=== PATIENT | female | born 1950 | race Caucasian/White ===

== ENCOUNTER 2020-02-15 12:09 | Outpatient (CLI) | payer MEDICARE, SELFPAY ==
--- NOTE | 2020-02-15 11:56 | DI.RAD_ITS ---
EXAM: XR KNEE LT 2V AP,LAT CLINICAL HISTORY: pain. TECHNIQUE: 2D digital imaging was performed. COMPARISON: No exams were available for comparison FINDINGS: BONES: No acute fracture is present. No bony destructive lesion is seen. There is a small enthesophy te at the superior patella. JOINTS: The knee is normally aligned. A moderate joint effusion is present. SOFT TISSUE: Normal. IMPRESSION: Moderate joint effusion. DATA REPOSITORY: RADIATION DOSE DELIVERED:
== END 2020-02-15 12:29 ==
PROVIDERS: Visit Provider Orthopaedic Surgery
DX: M25.562 Pain in left knee (principal); M25.462 Effusion, left knee; M23.92 Unspecified internal derangement of left knee
CPT/HCPCS: 20610; 99201; 73560; J1040

== ENCOUNTER → 2020-03-14 09:58 | Outpatient (BNVA) | payer MEDICARE, SELFPAY | PROVIDERS: Visit Provider Orthopaedic Surgery | DX: M23.92 Unspecified internal derangement of left knee; Z98.890 Other specified postprocedural states | CPT/HCPCS: 99213 ==

== ENCOUNTER → 2020-04-11 09:31 | Outpatient (BNVA) | payer MEDICARE, SELFPAY | PROVIDERS: Visit Provider Orthopaedic Surgery | DX: M23.92 Unspecified internal derangement of left knee | CPT/HCPCS: 99213 ==

== ENCOUNTER 2022-01-07 01:01 | Outpatient (CLI) | payer MEDICARE, SELFPAY ==
--- NOTE | 2022-01-07 07:30 | DI.MRI_ITS ---
Exam(s) MR IAC BRAIN WO/W EXAM: MR IAC BRAIN WO/W CLINICAL HISTORY: dizziness,imbalance, r26.89,r42 TECHNIQUE: Multiplanar multisequence MRI of the brain was performed. Both noninfused and contrast i nfused sequences were performed. IV Contrast injected was 19 cc Dotarem. COMPARISON: No exams were available for comparison FINDINGS: INTERNAL AUDITORY CANALS: There are no masses in the cerebellopontine angles. No evidence of intraca nalicular acoustic neuroma. The high-resolution sub millimeter slice FIESTA sequence reveals normal appearing 7th and 8th cranial nerves within the internal auditory canals, bilaterally. The adjacent 5th cranial nerves (trigeminal nerves) appear unremarkable in this region. CEREBRAL PARENCHYMA: No evidence of intracranial hemorrhage, mass effect nor shift of midline structu re. No extraaxial fluid collections. Ventricles are not enlarged nor shifted. There is no significant focal signal abnormality in the cerebellar hemispheres nor within the coral, m idbrain, and thalami. There are few tiny nonspecific foci of white matter signal abnormality Vivi in supra ventricular whit e matter thenar on the FLAIR images. There is no associated brain edema or hemorrhage and no abnorma l signal evident to suggest restricted diffusion-acute ischemic events at these levels nor elsewhere in the brain.. There are no ring enhancing lesions in the brain. There is no abnormal meningeal enhancement. PITUITARY GLAND: No mass nor parasellar abnormality. No obvious abnormality in the cavernous sinuses. FLOW VOIDS: The expected flow void are noted. No evidence of obvious aneurysm nor obvious vascular ma lformation. PARANASAL SINUSES: The visualized paranasal sinuses appear unremarkable. ORBITS: No obvious abnormal findings. IMPRESSION: 1. Subtle nonspecific white matter periventricular findings as described above. No evidence of hemor rhage, acute infarct (lacunar nor territorial), nor ring-enhancing lesions. 2. No abnormal enhancing intracranial finding. 3. No evidence of acoustic schwannoma-neuromma. DATA REPOSITORY:
[2022-01-07 12:08] LABS: CREATININE 0.9 mg/dL (0.55-1.02)
[2022-01-07] MEDS: Normal Saline Flush 10 ML SYR IVP (12:16)
[2022-01-07] MEDS: Gadoterate meglumine 20 ML VIAL 19 ML IVP (12:16)
== END 2022-01-07 01:21 ==
PROVIDERS: PCP Family Medicine; Visit Provider Otolaryngology
DX: R26.89 Other abnormalities of gait and mobility (principal); R42 Dizziness and giddiness; Z01.812 Encounter for preprocedural laboratory examination; R90.82 White matter disease, unspecified
CPT/HCPCS: 70553; 82565

== ENCOUNTER → 2022-02-26 13:20 | Outpatient (BNVA) | payer MEDICARE, SELFPAY | PROVIDERS: PCP Family Medicine; Referring Provider Otolaryngology; Visit Provider Psychiatry & Neurology Neurology | DX: G62.9 Polyneuropathy, unspecified (principal) | CPT/HCPCS: 99214 ==

== ENCOUNTER 2022-08-12 03:39 | Outpatient (CLI) | payer MEDICARE, SELFPAY ==
[2022-08-12 11:48] LABS: Vitamin B12 651 pg/mL (193-986)
[2022-08-13 13:28] LABS: Albumin 62.7 % (55.8-66.1); Albumin g/dL 4.1 g/dL (3.6-5.2); Total Protein 6.6 g/dL (6.3-8.2)
== END 2022-08-12 03:40 | disposition home or self-care (01) ==
LOC: LBO 03:39
PROVIDERS: PCP Family Medicine; Visit Provider Psychiatry & Neurology Neurology
DX: G62.9 Polyneuropathy, unspecified (principal)
CPT/HCPCS: 36415; 82607; 84165

== ENCOUNTER 2022-10-28 08:59 | Outpatient (CLI) | payer MEDICARE, SELFPAY ==
--- NOTE | 2022-10-28 08:15 | DI.MAMMO_ITS ---
Exam(s) MAMMO SCREENING EXAM: MAMMO SCREENING CLINICAL HISTORY: screening,Z12.39 TECHNIQUE: Bilateral full field digital CC and MLO mammographic images were obtained with 3D tomosyn thesis and utilizing computer aided detection (CAD). COMPARISON: Available for comparison. FINDINGS: Masses/Architectural Distortion: There is stable right breast nodules. No suspicious nodules or area s of architectural distortion are present. Microcalcifications: No suspicious pleomorphic-type are seen. Skin Thickening/Nipple Retraction: None. IMPRESSION: 1. No significant interval change with no specific features of malignancy noted. 2. Unless there is more urgent need, screening mammography is recommended, as per [employer] guidelines. BI-RADS Category 2 - Benign Findings Breast Density - Category B - Scattered areas of fibroglandular density Breast density category C or D implies that the patient has dense breast tissue. Dense breast tissue is very common and is not abnormal but dense breast tissue can make it harder to find cancer on a ma mmogram. Also, dense breast tissue may increase their breast cancer risk. This information about the result of the mammogram report was provided to the patient to raise their awareness. Use this report when you speak with the patient about their risks for breast cancer, which includes their family hist ory. At that time, you may recommend for more screening tests (Ultrasound or MRI) as they might be us eful based on their risk. A negative radiographic report should not delay biopsy if a dominant or clinically suspicious mass is present. Up to ten percent of cancers are not identified on mammography. A negative report may reinforce clinical impression. Adenosis and dense breasts may obscure an underlying neoplasm. False positive reports average 6 to 10%. Patient will receive a letter notifying them of these results.
== END 2022-10-28 09:19 ==
PROVIDERS: PCP Family Medicine; Visit Provider Family Medicine
DX: Z12.31 Encounter for screening mammogram for malignant neoplasm of breast (principal)
CPT/HCPCS: 77063; 77067

== ENCOUNTER 2023-01-13 01:40 | Outpatient (CLI) | payer MEDICARE, SELFPAY ==
--- NOTE | 2023-01-13 09:40 | DI.RAD_ITS ---
Exam(s) XR CERVICAL SPINE COMP 4-5V EXAM: XR CERVICAL SPINE COMP 4-5V CLINICAL HISTORY: neck pain,m54.2. TECHNIQUE: 2D digital imaging was performed. COMPARISON: No exams were available for comparison FINDINGS: Five views There is no evidence fracture, listhesis, nor offset of the spinal laminar line. There is chronic disc space narrowing at C5-6 and C6-7 levels. There are bilateral Luschka joint ost eophytes evident at these 2 levels, best seen on the oblique views. No cervical ribs. No osseous le sions. IMPRESSION: Chronic degenerative disc disease in the lower cervical spine. No fractures. No listhesis. DATA REPOSITORY: RADIATION DOSE DELIVERED:
== END 2023-01-13 02:00 ==
LOC: DI 01:42
PROVIDERS: PCP Family Medicine; Visit Provider Family Medicine
DX: M50.322 Other cervical disc degeneration at C5-C6 level
CPT/HCPCS: 72050

== ENCOUNTER → 2023-01-19 10:21 | Outpatient (BNVA) | payer MEDICARE, SELFPAY | PROVIDERS: PCP Family Medicine; Referring Provider Family Medicine; Visit Provider Surgery | DX: K64.1 Second degree hemorrhoids (principal) | CPT/HCPCS: 99202; 99213 ==

== ENCOUNTER 2023-01-23 11:01 | Outpatient (CLI) | payer MEDICARE, SELFPAY ==
--- NOTE | 2023-01-23 11:00 | RT.EKG_ITS ---
APPROVED REPORT Exam: Resting ECG Reason for Exam: cardiac evaluation Patient Location: O HR:83 bpm ECG Measurements Heart Rate 83 AXIS DC 145 P 53 QRSd 157 QRS -18 QT 432 T 98 QTc 508 Conclusion Sinus rhythm...normal P axis, V-rate 50- 99 Left bundle branch block...QRSd>120, broad/notched R
== END 2023-01-23 11:02 | disposition home or self-care (01) ==
LOC: DI.CARD 11:01
PROVIDERS: PCP Family Medicine; Visit Provider Internal Medicine Cardiovascular Disease
DX: Z13.6 Encounter for screening for cardiovascular disorders (principal)
CPT/HCPCS: 93010

== ENCOUNTER → 2023-01-23 11:05 | Outpatient (BNVA) | payer MEDICARE, SELFPAY | PROVIDERS: PCP Family Medicine; Referring Provider Family Medicine; Visit Provider Internal Medicine Cardiovascular Disease | DX: I10 Essential (primary) hypertension (principal); R06.09 Other forms of dyspnea; I44.7 Left bundle-branch block, unspecified | CPT/HCPCS: 93005; 99203; 99214 ==

== ENCOUNTER 2023-03-02 01:19 | Outpatient (CLI) | payer MEDICARE, SELFPAY ==
--- NOTE | 2023-03-02 07:30 | DI.NM_ITS ---
APPROVED REPORT Exam: Pharmacologic Patient Location: Out-Patient Room/Bed: Stress Nurse: Elmira Betancur RN Ordering Provider:GALE ROGERSD, Contact Number: BMI: 32.18 Baseline Rhythm: Sinus Rhythm, LBBB Indications: Assess CAD, Dyspnea, Angina, LBBB Medical History Medical History: PreDM, Stable Angina, Dizziness, CALLAWAY, HLD, H/O Abnormal stress test, HTN, LBBB Cardiac Medications: Nitroglycerin, Metoprolol succinate, magnesium, losartan, colestipol, CoenzymeQ1 0, Vit D3, ASA, Amlodipine, Vit B Allergies: Statins, Cardiac Risk Factors: HTN, HLD, Obesity Pretest Chest Pain Characteristics: None Exercise History: Sedentary Physical Disabilities: None Lung Sounds: Clear to auscultation Heart Sounds: Regular Stress Test Details Test: Pharmacologic stress was paired with low level exercise. Nuclear Acquisition: Stress Tc-99m/Stress Tc-99m 1 day Rest Isotope: Tc-99m Sestamibi. Dose: 10.2 Date: 03/02/2023 Injection Time: 0925 Stress Isotope: Tc-99m Sestamibi. Dose: 32 Date: 03/02/2023 Injection Time: 1055 HR Resting HR Supine: 65. bpm Max Heart Rate (APMHR): 149.288822 bpm Resting HR Standin bpm Target HR (85% APMHR): 126.982756 bpm Max HR Achieved: 128 bpm % of APMHR: 85.91 Recovery HR: 89 bpm BP Resting BP Supine: 150/78 mmHg Resting BP Standin/86 mmHg Max BP: 168/80 mmHg Recovery BP: 148/82 mmHg ECG Resting ECG: Sinus Rhythm, LBBB Ectopy: None Stress ECG: Sinus Rhythm, LBBB ST Change: No significant ST segment changes noted Arrhythmia: None Recovery ECG: Sinus Rhythm, LBBB Recovery ST Change: No significant ST segment changes noted Recovery Arrhythmia: None Clinical Rate Pressure Product: 52421 Stress ECG Conclusion 1. Resting electrocardiogram showed a left bundle branch block 2. Patient underwent testing using combination of low-level exercise and pharmacologic stress with re gadenoson 3. Peak heart rate achieved was 86% of predicted for age 4. The electrocardiographic portion of the test was nondiagnostic due to resting EKG abnormalities (L BBB) 5. See MPI report Stress Test Summary STAGE HR BP SpO2 Symptoms NOTES Supine 65 150/78 98 Standing 69 148/86 98 1 min post Lexiscan injection 124 168/80 98 3 min post Lexiscan injection 99 154/84 97 Chest and Jaw tightness 6 min post Lexiscan injection 89 148/82 96 chest and jaw tightness resolved Pharmacologic testing was paired with low level exercise of treadmill at 1.2MPH and 0% Grade. Short d uration of chest and jaw tightness noted during recovery, resolved within 2 minutes. MPI Conclusion Myocardial perfusion is normal, no ischemia or evidence of prior infarction EF 55%, normal wall motion Radiologist Interpretation Radiologist Interpretation by: Barry Delvalle MD Interpretation Date/Time: 03/02/2023 17:36:38
[2023-03-02] MEDS: Regadenoson 0.4 MG/5 ML SYR IVP (10:37)
== END 2023-03-02 01:39 ==
LOC: DI 01:19
PROVIDERS: PCP Family Medicine; Visit Provider Internal Medicine Cardiovascular Disease
DX: I20.8 Other forms of angina pectoris (principal); I44.7 Left bundle-branch block, unspecified; R06.09 Other forms of dyspnea
CPT/HCPCS: 78452; 93016; 93018; 93017; J2785

== ENCOUNTER 2023-08-20 01:49 | Outpatient (CLI) | payer MEDICARE, SELFPAY ==
[2023-08-20 13:42] LABS: ALT 28 U/L (14-59); AST 28 U/L (15-37); Albumin 3.6 g/dL (3.4-5.0); Alkaline Phosphatase 94 U/L (46-116); Anion Gap 10.6 mmol/L (3-11); BUN 13 mg/dL (7-18); Bilirubin, Total 0.5 mg/dL (0.2-1.0); CO2 26.4 mmol/L (21.0-32.0); CREATININE 0.9 mg/dL (0.55-1.02); Calcium 8.9 mg/dL (8.5-10.1); Calculated LDL 182 mg/dL (<100); Chloride 105 mmol/L (98-107); Cholesterol 276 mg/dL (<200); Estimated GFR 67.92 (mL/min/1.73m2); Glucose 123 mg/dL (74-106); HDL Cholesterol 67 mg/dL (40-60); Sodium 142 mmol/L (136-145); TSH (W/Ref FT4) 2.91 uIU/mL (0.36-3.74); Total Protein 7.3 g/dL (6.4-8.2); Triglyceride 135 mg/dL (<150)
[2023-08-20 15:56] LABS: COMMENT (LAB VIEW ONLY) 166.25 mg/dL
[2023-08-20 16:27] LABS: Microalb ug/mg Crea 3.1 ug/mg Cr
== END 2023-08-20 01:50 | disposition home or self-care (01) ==
LOC: LBO 01:49
PROVIDERS: PCP Family Medicine; Visit Provider Family Medicine
DX: E11.9 Type 2 diabetes mellitus without complications (principal); I10 Essential (primary) hypertension
CPT/HCPCS: 36415; 80053; 80061; 82043; 82570; 83036; 84443

== ENCOUNTER → 2024-01-22 10:35 | Outpatient (BNVA) | payer MEDICARE, SELFPAY | PROVIDERS: PCP Family Medicine; Referring Provider Family Medicine; Visit Provider Internal Medicine Cardiovascular Disease | DX: I44.7 Left bundle-branch block, unspecified (principal) | CPT/HCPCS: 99213 ==

== ENCOUNTER 2024-12-06 02:11 | Outpatient (CLI) | payer MEDICARE, SELFPAY ==
[2024-12-06 11:14] LABS: ALT 19 U/L (14-59); AST 18 U/L (15-37); Albumin 4.1 g/dL (3.4-5.0); Alkaline Phosphatase 71 U/L (46-116); Anion Gap 10.5 mmol/L (3-11); BUN 15 mg/dL (7-18); Bilirubin, Total 0.7 mg/dL (0.2-1.0); CO2 25.5 mmol/L (21.0-32.0); Calcium 9.8 mg/dL (8.5-10.1); Calculated LDL 159 mg/dL (<100); Chloride 108 mmol/L (98-107); Cholesterol 248 mg/dL (<200); Estimated GFR 59.49 (mL/min/1.73m2); Glucose 102 mg/dL (74-106); HDL Cholesterol 65 mg/dL (>or=50); Potassium 3.9 mmol/L (3.5-5.1); Sodium 144 mmol/L (136-145); Total Protein 7.2 g/dL (6.4-8.2); Triglyceride 123 mg/dL (<150)
[2024-12-06 11:46] LABS: Hemoglobin A1C 5.2 % (<5.7)
== END 2024-12-06 02:12 | disposition home or self-care (01) ==
PROVIDERS: PCP Family Medicine; Visit Provider Family Medicine
DX: I10 Essential (primary) hypertension (principal); E11.9 Type 2 diabetes mellitus without complications
CPT/HCPCS: 36415; 80053; 80061; 83036

== ENCOUNTER 2025-01-20 10:00 | Outpatient (CLI) | payer MEDICARE, SELFPAY ==
--- NOTE | 2025-01-20 10:00 | RT.EKG_ITS ---
APPROVED REPORT Exam: Resting ECG Reason for Exam: follow up Patient Location: O HR:96 bpm ECG Measurements Heart Rate 96 AXIS SD 134 P 6 QRSd 149 QRS -9 QT 415 T 109 QTc 525 Conclusion Sinus rhythm...normal P axis, V-rate 50- 99 Left bundle branch block...QRSd>120, broad/notched R
== END 2025-01-20 10:01 | disposition home or self-care (01) ==
LOC: DI.CARD 10:06
PROVIDERS: PCP Family Medicine; Visit Provider Internal Medicine Cardiovascular Disease
DX: I44.7 Left bundle-branch block, unspecified (principal); I10 Essential (primary) hypertension
CPT/HCPCS: 93010

== ENCOUNTER → 2025-01-20 10:00 | Outpatient (BNVA) | payer MEDICARE, SELFPAY | PROVIDERS: PCP Family Medicine; Referring Provider Family Medicine; Visit Provider Internal Medicine Cardiovascular Disease | DX: I44.7 Left bundle-branch block, unspecified (principal); I10 Essential (primary) hypertension | CPT/HCPCS: 99213; 93005 ==

== ENCOUNTER 2025-02-13 01:53 | Outpatient (CLI) | payer MEDICARE, SELFPAY ==
--- NOTE | 2025-02-13 07:45 | DI.MAMMO_ITS ---
Exam(s) MAMMO SCREENING EXAM: MAMMO SCREENING CLINICAL HISTORY: screening,z12.39. TECHNIQUE: Bilateral full field digital CC and MLO mammographic images were obtained with 3D tomosyn thesis and utilizing computer aided detection (CAD). COMPARISON: Prior mammograms were reviewed. FINDINGS: There are no CAD designations. Benign-appearing right breast nodules unchanged from prior mammograms. Towards the posterior aspect of the left breast there is a new nodular density measuring 6 x 4 mm loc ated 13 cm in from the nipple on the CC view, slightly lateral of center. This has the appearance of a probable benign lymph node but was not evident on any of the prior mammograms dating back to 2017. In addition, there is another asymmetric density-possible nodule in the left breast seen on the CC vi ew approximately 6 cm in from the nipple measuring 1.2 x 0 0.6 cm. There are no malignant-appearing microcalcification groups in either breast. There is no significant architectural distortion nor skin thickening-retraction. IMPRESSION: 1. No radiographic evidence of malignancy in the right breast. 2. 2 asymmetric densities-possible nodules in the left breast as described above. Spot compression v iews and ultrasound recommended. BI-RADS Category 0 - Incomplete: Need additional imaging evaluation Breast Density - Category B - There are scattered areas of fibroglandular density. Breast density Category C or D implies that the patient has dense breast tissue. Dense breast tissue can make it harder to find cancer on a mammogram. Dense breast tissue is also associated with an incr eased risk of breast cancer. This information about the result of the mammogram report was provided to the patient to raise their awareness. Use this report when you speak with the patient about their risks for breast cancer, which includes their family history. At that time, you may recommend additional screening tests (Ultrasoun d or MRI) as these tests may add significant information. A negative radiographic report should not delay biopsy if a dominant or clinically suspicious mass is present. Up to ten percent of cancers are not identified on mammography. A negative report may reinforce clinical impression. Adenosis and dense breasts may obscure an underlying neoplasm. False positive reports average 6 to 10%. Patient will receive a letter notifying them of these results.
== END 2025-02-13 02:13 ==
LOC: DI 01:53
PROVIDERS: PCP Family Medicine; Visit Provider Family Medicine
DX: Z12.31 Encounter for screening mammogram for malignant neoplasm of breast (principal); R92.8 Other abnormal and inconclusive findings on diagnostic imaging of breast
CPT/HCPCS: 77063; 77067

== ENCOUNTER 2025-02-20 00:12 | Outpatient (CLI) | payer MEDICARE, SELFPAY ==
--- NOTE | 2025-02-20 | DI.US_ITS ---
Exam(s) MG MAMMO SCREEN CALL BACK UNI US BREAST LT COMPLETE EXAM: MG MAMMO SCREEN CALL BACK UNI and U/S breast LT complete CLINICAL HISTORY: 6 x 4 mm nodule 13 cm from nipple, and 1.2 x 0.6 cm nodule 6 cm from. TECHNIQUE: Craniocaudal and mediolateral oblique Full Field Digital Mammography views of the left breast with Computer Aided Diagnosis followed by Tomosynthesis and complete left breast ultrasound. All 4 quadrants of the left breast, left axilla and left retroareolar region were evaluated sonographically. COMPARISON: Comparison is made with prior examinations. FINDINGS: Mammography/Tomosynthesis: Masses/Architectural Distortion: The area seen on the craniocaudad view in the central left breast is less concerning on the current examination and appears similar to prior examinations. The well-circumscribed nodule in the outer left breast on the craniocaudad view is again seen. It has a mild lobulation/notch and is most consistent with a lymph node. On the MLO view, the well- circumscribed nodule in the inferior posterior breast persists. Microcalcifictions: No suspicious pleomorphic-type are seen. Skin Thickening/Nipple Retraction: None. Complete left breast US: Echotexture: Normal appearance of the glandular tissue. Shadowing: No suspicious foci. Cyst: At the 11 o'clock position 3 cm from the nipple there is a 0.3 by 0.4 x 0.2 cm well-circumscribed radially oriented avascular hypoechoic nodule. This may represent a complex cyst or benign lesion such as an intraparenchymal lymph node or fibroadenoma. Solid lesions: A benign-appearing lymph node is seen in the left axilla measuring 2.5 cm. Ductal dilation: None. IMPRESSION: 1. No definite evidence of malignancy is noted. 2. A six-month follow-up left mammogram is requested for re-evaluation. 3. The findings were discussed with the patient on the date of the examination. BI-RADS Category 3 - 6 month - Probably Benign Finding: Recommend follow-up imaging in 6 months Breast Density - Category B - There are scattered areas of fibroglandular density. Breast density Category C or D implies that the patient has dense breast tissue. Dense breast tissue can make it harder to find cancer on a mammogram. Dense breast tissue is also associated with an increased risk of breast cancer. This information about the result of the mammogram report was provided to the patient to raise their awareness. Use this report when you speak with the patient about their risks for breast cancer, which includes their family history. At that time, you may recommend additional screening tests (Ultrasound or MRI) as these tests may add significant information. A negative radiographic report should not delay biopsy if a dominant or clinically suspicious mass is present. Up to ten percent of cancers are not identified on mammography. A negative report may reinforce clinical impression. Adenosis and dense breasts may obscure an underlying neoplasm. False positive reports average 6 to 10%. Patient will receive a letter notifying them of these results.
== END 2025-02-20 00:32 ==
LOC: DI 00:12
PROVIDERS: PCP Family Medicine; Visit Provider Family Medicine
DX: Z12.31 Encounter for screening mammogram for malignant neoplasm of breast (principal); R92.8 Other abnormal and inconclusive findings on diagnostic imaging of breast
CPT/HCPCS: 76642; 77063; 77067

== ENCOUNTER 2025-03-06 10:39 | Outpatient (CLI) | payer MEDICARE, SELFPAY ==
[2025-03-06 12:22] LABS: HCT 41.8 % (36.0-46.0); MCH 29.5 pg (27.0-33.0); MCHC 33.5 % (32.0-36.0); MCV 88 fL (80-95); MPV 11.2 fL (8.0-11.0); Platelet Count 269 10^3/uL (130-400); RBC 4.75 10^6/uL (3.93-5.22); RDW 13.1 % (11.7-14.6); RDW-SD 42.2 fL; WBC 5.76 10^3/uL (4.4-10.8)
[2025-03-06 20:09] LABS: Hepatitis C Ab w Rflx HCV PCR Negative (Negative)
[2025-03-07 10:48] LABS: Lyme Ab w Rflx to Lyme Confirm Negative (Negative)
[2025-03-09 14:59] LABS: Anaplasma phagocytophilum Negative (Negative); B. miyamotoi PCR Negative (Negative); Babesia divergens/MO-1 Negative (Negative); Babesia duncani Negative (Negative); Babesia microti Negative (Negative); Ehrlichia chaffeensis Negative (Negative); Ehrlichia ewingii/canis Negative (Negative); Ehrlichia muris eauclairensis Negative (Negative)
== END 2025-03-06 10:40 | disposition home or self-care (01) ==
PROVIDERS: PCP Family Medicine; Referring Provider Family Medicine; Visit Provider Family Medicine
DX: Z11.59 Encounter for screening for other viral diseases (principal); W57.XXXA Bitten or stung by nonvenomous insect and other nonvenomous arthropods, initial encounter; R42 Dizziness and giddiness
CPT/HCPCS: 36415; 85027; 86803; 87798; 86618

== ENCOUNTER 2025-03-07 15:08 | Outpatient (CLI) | payer MEDICARE, SELFPAY | END 2025-03-07 15:09 | disposition home or self-care (01) | PROVIDERS: PCP Family Medicine; Visit Provider Family Medicine | DX: R42 Dizziness and giddiness (principal) | CPT/HCPCS: 93246 ==

== ENCOUNTER 2025-03-28 07:22 | Outpatient (CLI) | payer MEDICARE, SELFPAY ==
--- NOTE | 2025-03-28 12:29 | W.CARDEVENT ---
Date of service: 03/28/25 Time of Service: 12:29 Cardiac Event Recorder Referring Provider:: Ariela Rain Indications:: Dizziness Cardiac Event Note: This is a cardiac event monitor. Patient was monitored for 13 days and 23 hours. Predominant rhythm was sinus with an average heart rate of 83. Minimum was 51, maximum 153 There were rare ventricular ectopic beats. A run of what was either atrial fibrillation with aberrancy, or nonsustained ventricular tachycardia lasting 17 seconds was recorded. This was asymptomatic There were rare atrial premature beats. There were several brief self-limited atrial runs.. Longest episode was 16 beats in duration There was no atrial fibrillation, no high-grade AV block, no pauses greater than 3 seconds. Reported symptoms generally correlated to sinus rhythm and sinus tachycardia
== END 2025-03-28 07:23 | disposition home or self-care (01) ==
LOC: CARDOPNVT 07:22
PROVIDERS: PCP Family Medicine; Visit Provider Internal Medicine Cardiovascular Disease
DX: R42 Dizziness and giddiness (principal); I47.10 Supraventricular tachycardia, unspecified
CPT/HCPCS: 93248

== ENCOUNTER 2025-03-30 01:13 | Outpatient (CLI) | payer MEDICARE, SELFPAY ==
--- NOTE | 2025-03-30 07:30 | DI.MRI_ITS ---
Exam(s) MR BRAIN WO EXAM: MR BRAIN WO CLINICAL HISTORY: head and neck tightness,DIZZINESS,HEAD BANGINGS,R42,F98.4 TECHNIQUE: Multiplanar multisequence MRI of the brain was performed. COMPARISON: MR MR IAC BRAIN WO/W from 01/07/2022 FINDINGS: VENTRICLES AND EXTRA AXIAL SPACES: Normal in size and morphology for the patient's age. MIDLINE SHIFT: None. CEREBRAL PARENCHYMA: No focus of restricted diffusion to suggest acute infarct. No space-occupying lesion identified. No significant atrophy. Minimal scattered foci of high signal in the white matter likely sequela of chronic microvascular disease. Stable from prior. BRAINSTEM/CEREBELLUM: Normal. VISUALIZED PARANASAL SINUSES: Clear. MASTOIDS:Clear. Vasculature: Normal flow void. PITUITARY GLAND: Unremarkable. ORBITS: Unremarkable. IMPRESSION: Unremarkable MRI of the brain. DATA REPOSITORY:
== END 2025-03-30 01:33 ==
LOC: DI 01:13
PROVIDERS: PCP Family Medicine; Visit Provider Family Medicine
DX: R42 Dizziness and giddiness (principal); F98.4 Stereotyped movement disorders
CPT/HCPCS: 70551

== ENCOUNTER 2025-04-04 03:19 | Outpatient (CLI) | payer MEDICARE, SELFPAY ==
--- NOTE | 2025-04-04 09:00 | DI.US_ITS ---
Exam(s) US CAROTID EXAM: US CAROTID CLINICAL HISTORY: dizziness, R42. TECHNIQUE: Ultrasound carotids performed using grayscale, color-flow, and spectral Doppler imaging. COMPARISON: No exams were available for comparison FINDINGS: RIGHT CAROTID ARTERY: Plaque: Mild amount of calcific plaque at the common carotid bulb. Soft plaque noted in the proximal right internal carotid artery. Velocity elevation: Elevated systolic and diastolic velocities consistent with 50-69 percent stenosis. Visually the stenosis appears mild. LEFT CAROTID ARTERY: Plaque: Mild plaque at the common carotid bulb. Significant calcified plaque at the proximal internal carotid artery with velocity elevations consistent with 59-69 percent stenosis. Visually concordant. VERTEBRAL ARTERIES: Antegrade flow. IMPRESSION: Calcific plaque at the proximal left internal carotid artery causing stenosis consistent with 59-69 percent. Mild plaque at the right proximal internal carotid artery with visually mild stenosis. Criteria for Carotid Stenosis: Normal: ICA PSV <125 cm/s no plaque or intimal thickening is visible. <50% stenosis: ICA PSV <125 cm/s and plaque or intimal thickening is visible. 50-69% stenosis: ICA PSV is 125-250 cm/s and plaque is visible. >70% stenosis to near occlusion: ICA PSV >250 cm/s with visible plaque and luminal narrowing. DATA REPOSITORY:
== END 2025-04-04 03:39 ==
LOC: DI 03:19
PROVIDERS: PCP Family Medicine; Visit Provider Family Medicine
DX: R42 Dizziness and giddiness (principal); I65.21 Occlusion and stenosis of right carotid artery
CPT/HCPCS: 93880

== ENCOUNTER 2025-04-10 01:07 | Outpatient (CLI) | payer MEDICARE, SELFPAY ==
--- NOTE | 2025-04-10 06:30 | DI.NM_ITS ---
APPROVED REPORT Exam: Pharmacologic Patient Location: Out-Patient Room/Bed: Stress Nurse: Hermelinda Newsome RN, Leigh Ann Matthew RN Ordering Provider:MARK WALTON, Contact Number: [phone] BMI: 27.36 Baseline Rhythm: LBBB Indications: angina and neck pressure Medical History Medical History: HTN, LBBB, obesity, HLD, HTN, PN, gait abnormality Cardiac Medications: magnesium, amlopine, tirzepatide, ezetimibe, nitro, losartan Allergies: statins Cardiac Risk Factors: family hx, HTN, obesity Previous Cardiac Procedures: cath>10yrs Pretest Chest Pain Characteristics: none Exercise History: Indeterminate Physical Disabilities: none Lung Sounds: Clear to auscultation Heart Sounds: Regular Stress Test Details Test: Pharmacologic stress testing performed using 0.4 mg of regadenoson per 5 mL given IV over 10 seconds. Reason for pharmacologic stress test: LBBB. Rest Isotope: Tc-99m Sestamibi. Dose: 10.0 Date: 04/10/2025 Injection Time: 935 Stress Isotope: Tc-99m Sestamibi. Dose: 30.0 Date: 04/10/2025 Injection Time: 1143 HR Resting HR Supine: 66 bpm Max Heart Rate (APMHR): 147 bpm Target HR (85% APMHR): 125 bpm Max HR Achieved: 103 bpm % of APMHR: 70 Recovery HR: 82 bpm BP Resting BP Supine: 136/76 mmHg Max BP: 130/72 mmHg Recovery BP: 120/60 mmHg ECG Resting ECG: Sinus Rhythm, LBBB Stress ECG: Sinus Rhythm,, LBBB ST Change: Nondiagnostic low heart rate Recovery ECG: Sinus Rhythm, LBBB Recovery ST Change: Nondiagnostic low heart rate Clinical Stress Symptoms: 9/10 chest tightness Angina Score: Non-Limiting Rate Pressure Product: [id number] Stress ECG Conclusion 1. Resting electrocardiogram showed a left bundle branch block 2. Patient underwent testing using pharmacologic stress with regadenoson 3. Peak heart rate achieved was 70% of maximal predicted heart rate for age 4. The electrocardiographic portion of the test was nondiagnostic 5. See MPI report Brennan Treadmill Score is which is Moderate risk. Stress Test Summary STAGE HR BP SpO2 Symptoms NOTES Supine 66 136/76 96 1 min post Lexiscan injection 102 130/72 96 tightness 9/10 3 min post Lexiscan injection 84 116/58 98 tightness 5/10 6 min post Lexiscan injection 82 120/60 98 tightness resolved Used lexiscan due to LBBB. Pt complained of 9/10 chest tightness which completely resolved at end of test. Preceded to imaging ambulatoy in no apparent distress. MPI Conclusion Myocardial perfusion is normal. There is no ischemia or evidence of prior infarction Ejection fraction is 60% with normal wall motion
[2025-04-10] MEDS: Regadenoson 0.4 MG/5 ML SYR IVP (14:41)
== END 2025-04-10 01:27 ==
LOC: DI 01:07
PROVIDERS: PCP Family Medicine; Visit Provider Internal Medicine Cardiovascular Disease
DX: I20.9 Angina pectoris, unspecified (principal)
CPT/HCPCS: 78452; 93016; 93018; 93017; J2785

== ENCOUNTER 2025-08-25 00:46 | Outpatient (CLI) | payer MEDICARE, SELFPAY ==
[2025-08-25 10:32] LABS: Abs Immature Grans 0.01 10^3/uL (0.0-0.06); HCT 35.7 % (36.0-46.0); HGB 11.2 g/dL (11.2-15.7); Immature Grans % 0.2 %; MCH 29.0 pg (27.0-33.0); MCHC 31.4 % (32.0-36.0); MCV 93 fL (80-95); MPV 9.9 fL (8.0-11.0); Platelet Count 528 10^3/uL (130-400); RBC 3.86 10^6/uL (3.93-5.22); RDW 14.8 % (11.7-14.6); RDW-SD 50.4 fL; WBC 5.12 10^3/uL (4.4-10.8)
[2025-08-25 12:09] LABS: Anion Gap 10.3 mmol/L (3-11); BUN 13 mg/dL (9-23); CO2 25.7 mmol/L (20.0-31.0); Calcium 9.2 mg/dL (8.3-10.6); Chloride 109 mmol/L (98-107); Glucose 95 mg/dL (74-106); Potassium 4.3 mmol/L (3.5-5.1); Sodium 145 mmol/L (136-145)
== END 2025-08-25 00:47 | disposition home or self-care (01) ==
LOC: LBO 00:46
PROVIDERS: PCP Family Medicine; Visit Provider Physician Assistant
DX: I10 Essential (primary) hypertension (principal); Z95.1 Presence of aortocoronary bypass graft; E78.00 Pure hypercholesterolemia, unspecified
CPT/HCPCS: 36415; 80048; 85025